=== PATIENT | male | born 1995 | race Caucasian/White ===

== ENCOUNTER 2020-11-11 07:30 | Outpatient (REF) | payer MEDICAID, OTHER, SELFPAY ==
[2020-11-11 08:16] LABS: MANUAL DIFF FLAG NO
[2020-11-11 08:20] LABS: Basophils Percent Auto 0.2 % (0-2); Eosinophils Absolute Auto 0.2 X10*3/uL (0.0-0.4); Eosinophils Percent Auto 4.1 % (0-4); Hematocrit 49.9 % (42-52); Imm Gran Abs Auto 0.02 X10*3/uL (0.00-0.03); Imm Gran Pct Auto 0.4 % (0.0-0.4); Lymphocytes Absolute Auto 2.8 X10*3/uL (1.2-4.9); Lymphocytes Percent Auto 51.8 % (20-40); Mean Corpuscular HGB Conc 34.1 g/dl (31.0-36.0); Mean Corpuscular Hemoglobin 28.4 pg (27.0-33.0); Mean Corpuscular Volume 83.3 fL (80-98); Mean Platelet Volume 10.7 fL (9.4-12.4); Monocytes Absolute Auto 0.4 X10*3/uL (0.1-1.2); Monocytes Percent Auto 7.2 % (2-11); Neutrophils Percent Auto 36.3 % (45-73); Platelet Count 245 X10*3/uL (160-400); Red Blood Count 5.99 X10*6/uL (4.60-5.80); Red Cell Distribution Width 11.5 % (11.0-16.0); White Blood Count 5.4 X10*3/uL (4.8-10.8)
[2020-11-11 08:46] LABS: Alanine Aminotransferase 41 U/L (0-40); Albumin Level 4.5 g/dL (3.5-5.0); Alkaline Phosphatase 67 U/L (39-117); Anion Gap 14 (12-20); Aspartate Amino Transferase 29 U/L (5-37); Bilirubin Direct 0.4 mg/dL (0.0-0.5); Blood Urea Nitrogen 15 mg/dL (9-16); Carbon Dioxide 24 mmol/L (22-29); Chloride 103 mmol/L (96-108); Cholesterol 222 mg/dL; Estimated Glomerular Filt Rate > 60; Glucose Random 99 mg/dL (60-115); HDL Cholesterol 35 mg/dL; LDL Cholesterol Calculated 156 mg/dl; Potassium 4.2 mmol/L (3.3-5.1); Sodium 137 mmol/L (135-145); Total Protein 7.8 g/dL (6.5-8.0); Triglycerides 156 mg/dL
[2020-11-11 08:49] LABS: Estimated Average Glucose 88 mg/dL; Hemoglobin A1c % 4.7 %
[2020-11-11 09:08] LABS: Free T4 (Free Thyroxine) 1.03 ng/dL (0.71-1.85); Thyroid Stimulating Hormone 1.43 uIU/mL (0.32-4.0)
[2020-11-11 10:54] LABS: CT PCR NOT DETECTED (Not Detect.); NG PCR NOT DETECTED (Not Detect.)
[2020-11-11 11:55] LABS: HIV AB/AG Nonreactive (Nonreactive); HIV Num 1 0.11 S/CO (0.00-0.99)
[2020-11-11 11:56] LABS: ~HepC Num1 0.05 S/CO (0.00-0.79); ~Hepatitis C Antibody Nonreactive (Nonreactive)
[2020-11-12 07:43] LABS: Syphilis Screen Nonreactive (Nonreactive)
== END 2020-11-11 07:31 | disposition home or self-care (01) ==
LOC: HO.LAB 07:30
PROVIDERS: PCP Internal Medicine; Visit Provider Internal Medicine
DX: Z00.00 Encounter for general adult medical examination without abnormal findings (principal); Z11.3 Encounter for screening for infections with a predominantly sexual mode of transmission; Z11.4 Encounter for screening for human immunodeficiency virus [HIV]; Z11.59 Encounter for screening for other viral diseases; K21.9 Gastro-esophageal reflux disease without esophagitis
CPT/HCPCS: 80048; 80061; 80076; 83036; 84439; 84443; 85025; 86780; 86803; 87389; 87491; 87591

== ENCOUNTER 2020-11-16 11:29 | Outpatient (REF) | payer MEDICAID, OTHER, SELFPAY | END 2020-11-16 11:30 | disposition home or self-care (01) | LOC: HO.LNP 11:29 | PROVIDERS: Visit Provider Internal Medicine | DX: K21.9 Gastro-esophageal reflux disease without esophagitis (principal) | CPT/HCPCS: 87338 ==

== ENCOUNTER → 2020-11-26 07:53 | Outpatient (REF) | payer MEDICAID, OTHER, SELFPAY ==
--- NOTE | 2020-11-26 08:08 | ECG_ITS ---
Test Reason : PALPITATIIONS Blood Pressure : / mmHG Vent. Rate : 072 BPM Atrial Rate : 072 BPM P-R Int : 130 ms QRS Dur : 090 ms QT Int : 372 ms P-R-T Axes : 024 017 -08 degrees QTc Int : 407 ms Normal sinus rhythm Normal ECG No previous ECGs available Referred By: Angelika Bauman Electronically Signed By:ANITA ELI MD
== END ==
LOC: HO.CARD 07:53
PROVIDERS: Absent Provider Internal Medicine; PCP Internal Medicine; Visit Provider Registered Nurse
DX: R00.2 Palpitations (principal)
CPT/HCPCS: 93005

== ENCOUNTER 2020-12-10 09:34 | Outpatient (REF) | payer MEDICAID, OTHER, SELFPAY ==
--- NOTE | ~2020-12-10 | US_ITS ---
EXAMINATION: US ABDOMEN COMPLETE CLINICAL INFORMATION: Abdominal pain. COMPARISON: CT abdomen and pelvis 01/21/2019. TECHNIQUE: Real-time imaging of the abdominal viscera. FINDINGS: PANCREAS: Not well visualized due to bowel gas. ABDOMINAL AORTA: The proximal, mid, and distal segments are normal in caliber. INFERIOR VENA CAVA: Visualized portions are normal. LIVER: Liver echotexture is slightly increased. The liver is normal in size. The liver contour is normal. No focal hepatic lesion. There is no intrahepatic biliary duct dilatation seen. GALLBLADDER: Normal. The gallbladder is physiologically distended without evidence of stones, sludge, polyps, wall thickening or pericholecystic fluid. COMMON BILE DUCT: Normal in caliber measuring 0.3 cm in diameter. RIGHT KIDNEY: Normal. No hydronephrosis. No renal calculi or focal parenchymal lesions. The kidney measures 10.6 cm in maximum dimension. LEFT KIDNEY: Normal. No hydronephrosis. No renal calculi or focal parenchymal lesions. The kidney measures 11.2 cm in maximum dimension. SPLEEN: Normal. The spleen measures 10.1 cm in maximum dimension. FREE FLUID: None. US/US abdomen complete IMPRESSION: Slightly echogenic liver probably representing fatty infiltration. Limited visualization of the pancreas. Otherwise unremarkable exam.
== END 2020-12-10 09:35 | disposition home or self-care (01) ==
LOC: HO.HMGCX 09:34
PROVIDERS: PCP Internal Medicine; Visit Provider Registered Nurse
DX: R10.0 Acute abdomen (principal)
CPT/HCPCS: 76700

== ENCOUNTER 2022-02-28 12:59 | Outpatient (REF) | payer MEDICAID, OTHER, SELFPAY ==
--- NOTE | ~2022-02-28 | US_ITS ---
EXAMINATION: US SCROTUM CLINICAL INFORMATION: Bilateral testicular pain. COMPARISON: None TECHNIQUE: A sonogram of the scrotum was performed assessing jarquin-scale appearance and color Doppler flow. Spectral Doppler analysis of the arterial and venous flow were performed in the testes bilaterally. FINDINGS: RIGHT: Right testicle measures 4.7 x 2.2 x 3.1 cm, volume 16.0 mL. No focal testicular parenchymal lesions are visualized. Spectral Doppler analysis of the arterial and venous flow is normal in the right testis. Right epididymal head is normal in size. No right hydrocele or varicocele is seen. Right epididymal Doppler flow is normal. LEFT: Left testicle measures 4.6 x 2.0 x 3.1 cm, volume 14.5 mL. No focal testicular parenchymal lesions are visualized. Spectral Doppler analysis of the arterial and venous flow is normal in the left testis. Left epididymal head is normal in size. 3 mm epididymal head cyst. No left hydrocele or varicocele is seen. Left epididymal Doppler flow is normal. US/US scrotum IMPRESSION: Unremarkable scrotal ultrasound.
== END 2022-02-28 13:00 | disposition home or self-care (01) ==
LOC: HO.US 12:59
PROVIDERS: Visit Provider Internal Medicine
DX: N50.811 Right testicular pain (principal); N50.812 Left testicular pain
CPT/HCPCS: 76870

== ENCOUNTER 2024-07-02 10:03 | Outpatient (REF) | payer MEDICAID, OTHER, SELFPAY ==
--- OUTSIDE RECORDS SUMMARY | 2024-07-02 12:06 | XMS_ITS | Encounter Summary ---
Author Organization [employer] [facility] Address [address] [place] [address] [address] [place] [address] Care Team Providers Care Satellite Communications Operator Name Role Phone Iain Driver MD Primary Care Prov ider Encounter Details Date Type Department Care Team (Latest Contact Info) Description 06/03/2019 Abstract [facility] CONVERSIONS Dental, Provider, DDS Social History Tobacco Use Types Packs/Day Years Used Date Smoking Tobacco: Never Assessed Sex and Gender Information Value Date Recorded Sex Assigned at Male 03/06/2022 10:36 AM EDT Legal Sex Male 10:36 AM EDT Gender Identity Choose not to disclose 10:36 AM EDT Sexual Orientation Choose not to disclose 2021 10:36 AM EDT documented as of this encounter Plan of Treatment Not on file documented as of this encounter Visit Diagnoses Not on filedocumented in this encounter Care Teams Satellite Communications Operator Relationship Specialty Start Date End Date Iain Driver MD [address] [place] [address] PCP - General Internal Medicine 02/07/19 documented as of this encounter
--- OUTSIDE RECORDS SUMMARY | 2024-07-02 12:06 | XMS_ITS | Encounter Summary ---
Author Organization [employer] Address [address] [facility] 7 [place] [address] Care Team Providers Care Paper Tester Name Role Phone Iain Driver MD Primary Care Prov ider Encounter Details Date Type Department Care Team ([facility] Contact Info) Description 06/30/2024 3:[address] [facility] P[facility]S [address] [place] [address] Iain Driver MD [address] [place] [address] Primary hypertension (Primary Dx); STD exposure Social History Tobacco Use Types Packs/Day Years Used Date Smoking Tobacco: Never Smokeless Tobacco: Never Alcohol Use Standard Drinks/Week Comments Yes 0 (1 standard drink = 0.6 oz pur e alcohol) Depression Answer Date Recorded Patient Health Questionnaire-9 Score 0 06/30/2024 Patient Health Questionnaire-9 Score 0 06/30/2024 Last PHQ-9: Questionnaire Data Not on file 0 06/30/2024 Housing Stability Answer Date Recorded What is your housing situation today? I have mireya sing 06/30/[address] you li ve. Do you have problems with any of the following? None of the above 06/30/2024 Food Insecurity Answer Date Recorded Within the past 12 months, y ou worried that your food would run out before you got money to buy more: Never True 06/30/2024 Within the past 12 months,th e food you bought just didn't last and you didn't have enough money to get more: Never True Transportation Answer Date Recorded In the past 12 months, has l ack of transportation kept you from medical appts, meetings, work or from getting things needed for daily living? No 06/30/2024 Utilities Answer Date Recorded In the past 12 months, has t he electric, gas, oil or water company threatened to shut off services in your home? No 06/30/2024 Depression Answer Date Recorded Patient Health Questionnaire-2 Score 0 06/30/2024 Internet Access Answer Date Recorded Internet Access Q1 Yes 06/30/2024 Internet Access Q2 Not on file 06/30/2024 Sex and Gender Information Value Date Recorded Sex Assigned at Male 03/06/2022 10:36 AM EDT Legal Sex Male 10:36 AM EDT Gender Identity Choose not to disclose 10:36 AM EDT Sexual Orientation Choose not to disclose 2021 10:36 AM EDT documented as of this encounter Last Filed Vital Signs Vital Sign Reading Time Taken Comments Blood Pressure 123/72 06/30/2024 3:25 PM EST Pulse - - Temperature - - Respiratory Rate - - Oxygen Saturation - - Inhaled Oxygen Concentration - - Weight - - Height - - Body Mass Index - - documented in this encounter Progress Notes * Iain Quinteros MD - 06/30/2024 3:15 PM EST Subjective Patient ID: Indu Hdz is a 29 y.o. adult who presents for No chief complaint on file.. Hypertension This is a chronic problem. Pertinent negatives include no chest pain, headaches, malaise/fatigue, palpitations or shortness of breath. Review of Systems Constitutional: Negative for malaise/fatigue. Respiratory: Negative for shortness of breath. Cardiovascular: Negative for chest pain and palpitations. Neurological: Negative for headaches. Objective Physical Exam Neurological: General: No focal deficit present. Mental Status: Indu is oriented to person, place, and time. Psychiatric: Mood and Affect: Mood normal. Behavior: Behavior normal. Assessment/Plan Problem List Items Addressed This Visit Primary hypertension - Primary Patient has lost over 30 lbs, has been exercising, following diet reccomendations, is off htn treatment for over 3 months and his blood pressure has remained stable, will order labs for further evaluation Relevant Orders CBC auto differential Comprehensive Metabolic Panel Lipid Panel, Standard Urinalysis, Complete, with Reflex to Culture Hemoglobin A1c Other Visit Diagnoses STD exposure Relevant Orders HIV-1/2 Antigen and Antibodies, Fourth Generation, with Reflexes Hepatitis C Antibody with Reflex to HCV, RNA, Quantitative, Real-Time PCR Chlamydia/N. Gonorrhoeae RNA, TMA, Urogenitial Syphilis Screen documented in this encounter Miscellaneous Notes * Assessment & Plan Note - Iain Quinteros MD - 06/30/2024 3:34 PM ESTAssociated Problem(s): Primary hypertension Patient has lost over 30 lbs, has been exercising, following diet reccomendations, is off htn treatment for over 3 months and his blood pressure has remained stable, will order labs for further evaluation documented in this encounter Plan of Treatment Scheduled Orders Name Type Priority Associated Diagnoses Orde r Schedule CBC auto differential Lab Routine Primary hypertension Expected: 06/30/2024 (Approximate), Expires: 06/30/2025 Comprehensive Metabolic Panel Lab Routine Primary hypertension Expected: 06/30/2024 (Approximate), Expires: 06/30/2025 Lipid Panel, Standard Lab Routine Primary hypertension Expected: 06/30/2024 (Approximate), Expires: 06/30/2025 Urinalysis, Complete, with Reflex to Culture Lab Routine Primary hypertension Expected: 06/30/2024 (Approximate), Expires: 06/30/2025 Hemoglobin A1c Lab Routine Primary hypertension Expected: 06/30/2024 (Approximate), Expires: 06/30/2025 HIV-1/2 Antigen and Antibodies, Fourth Generation, with Reflexes Lab Routine STD exposure Expected: 06/30/2024 (Approximate), Expires: 06/30/2025 Hepatitis C Antibody with Reflex to HCV, RNA, Quantitative, Real-Time PCR Lab Routine STD exposure Expected: 06/30/2024, Expires: 06/30/2025 Chlamydia/N. Gonorrhoeae RNA, TMA, Urogenitial Microbiology Routine STD exposure Ordered: 06/30/2024 Syphilis Screen Lab Routine STD exposure Expected: 06/30/2024, Expires: 06/30/2025 documented as of this encounter Visit Diagnoses Diagnosis Primary hypertension- Primary Unspecified essential hypertension STD exposure documented in this encounter Additional Health Concerns Assessment Noted Time PHQ-9 Depression Total Score: 0 06/30/19 25 3:13 PM EST documented as of this encounter Care Teams Paper Tester Relationship Specialty Start Date End Date Iain Driver MD [address] [place] [id number] PCP - General Internal Medicine 02/07/19 documented as of this encounter
--- OUTSIDE RECORDS SUMMARY | 2024-07-02 12:06 | XMS_ITS | Clinical Summary ---
Author Organization [employer] Address [address] [facility] [address] [place] [address] Care Team Providers Care Cloth Colorer Name Role Phone Iain Driver MD Primary Care Prov ider Allergies No known active allergies Medications Blood Pressure kitIndications:Pr imary hypertension 1 Units 2 times daily. 1 kit 3 Active psyllium (Metamucil) 58.6 % packet Take 1 packet (3.4 g of fiber) by mouth 2 times daily. Mix and drink with at least 8 ounces of water or juice. 60 packet 11 5 06/30/19 26 Active hydrOXYzine HCl (Atarax) 25 MG tablet Take 1 tablet (25 mg) by mouth if needed in the morning, at noon, and at bedtime for itching. 90 tablet 3 3 06/30/19 25 Discontinu ed(Therapy completed) hydrOXYzine HCl (Atarax) 25 MG tablet Take 1 tablet (25 mg) by mouth if needed in the morning, at noon, and at bedtime for itching. 90 tablet 3 3 06/30/19 25 Discontinu ed(Therapy completed) losartan (Cozaar) 25 MG tabletIndications :Primary hypertension TAKE ONE TABLET EVERY DAY 90 tablet 1 4 06/30/19 25 Discontinu ed(Therapy completed) Active Problems Problem Noted Date Diagnosed Date Periumbilical abdominal pain 10/19/2022 Assessment & Plan (10/19/2022 10:11 AM EDT): Examination was unremarkable, no masses, no hernia were palpated, he is going to the gym, most likely muscle strain, will monitor Anxiety 10/19/2022 Assessment & Plan (10/19/2022 10:12 AM EDT): Will prescribe hydroxyzine, no suicidal/homicidal ideas Atypical chest pain 10/05/2022 Assessment & Plan (10/05/2022 11:40 AM EDT): Patient complains of substernal chest pain, denied shortness of breath, refers last a few minutes and goes away, no radiation, will order stress test r/o cardiac etiology Primary hypertension 06/13/2022 Assessment & Plan (06/30/2024 3:34 PM EST): Patient has lost over 30 lbs, has been exercising, following diet reccomendations, is off htn treatment for over 3 months and his blood pressure has remained stable, will order labs for further evaluation Assessment & Plan (10/19/2022 10:08 AM EDT): Controlled, reinforced low sodium diet and exercise as tolerated, no changes will be made Assessment & Plan (10/05/2022 11:40 AM EDT): Controlled, reinforced low sodium diet and exercise as tolerated, continue same treatment, monitor bp daily Assessment & Plan (06/13/2022 12:55 PM EST): Will start on losartan 25mg, reinforced low sodium diet and exercise as tolerated, will follow up in 1 month HPV exposure 05/10/2022 Assessment & Plan (06/05/2022 8:44 PM EST): Patient exposed to HPV though his , he is concerned of condition, no lesion, no genital rash/discharge/pain, will provide gardasil Encounters Date Type Department Care Team Description 06/30/2024 3:15 PM EST Telemedicine [facility] MED & PEDS [address] [place] [address] Iain Driver MD Primary hypertension (Primary Dx); STD exposure 06/30/2024 Travel from Last 3 Months Immunizations Name Administration Dates Next Due HPV 9-Valent 07/11/2022,06/06/2022 Influenza injectable quadriv alent IIV4 with preservative 02/17/2019 Social History Tobacco Use Types Packs/Day Years Used Date Smoking Tobacco: Never Smokeless Tobacco: Never Tobacco Cessation:Counseling Given: Not Answered Alcohol Use Standard Drinks/Week Comments Yes 0 (1 standard drink = 0.6 oz pur e alcohol) Depression Answer Date Recorded Patient Health Questionnaire-9 Score 0 06/30/2024 Patient Health Questionnaire-9 Score 0 06/30/2024 Last PHQ-9: Questionnaire Data Not on file 0 06/30/2024 Housing Stability Answer Date Recorded What is your housing situation today? I have mireya mckeon 06/30/[address] you li [...] not to disclose 2021 10:36 AM EDT Last Filed Vital Signs Vital Sign Reading Time Taken Comments Blood Pressure 123/72 06/30/2024 3:25 PM EST Pulse 70 10/19/2022 9:46 AM EDT Temperature 36.7 ??C (98.1 ??F) 10/19/2022 9:46 AM ED T Respiratory Rate 16 10/19/2022 9:46 AM EDT Oxygen Saturation 98% 10/19/2022 9:46 AM EDT Inhaled Oxygen Concentration - - Weight 100 kg (221 lb) 10/19/2022 9:46 AM EDT Height 176.5 cm (5' 9.5 ) 10/19/2022 9:46 AM EDT Body Mass Index 32.17 10/19/2022 9:46 AM EDT Plan of Treatment Health Maintenance Due Date Last Done Comments Family Planning (PISQ) 2008 DTaP/Tdap/Td Vaccines (1 - Tdap) 2012 Hepatitis B Vaccines (1 of 3 - 19+ 3-dose series) 2012 HPV Vaccines (3 - 3-dose SCD M series) 12/04/2022 07/11/2022, 06/06/2022 Tobacco Screening 10/20/2023 10/19/2022 COVID-19 Vaccine (3 - 2023-2 5 season) 2024 10/06/2020, 09/08/2020 Influenza Vaccine (#1) 2024 02/17/2019 Alcohol/Substance Use Screening 06/30/2025 06/30/2024 Depression Screening 06/30/2025 06/30/2024, 06/30/2024 SDOH Screening 06/30/2025 06/30/2024 Lipid Panel 11/10/2026 11/10/2021 Zoster Vaccines (1 of 2) 2043 RSV Patients and Patients Aged 60 years or older (1 - 1-dose 75+ series) 2068 HIV Screening Completed 11/11/2020 Hepatitis C Screening Completed 11/11/2020 HIB Vaccines Aged Out No longer eligi ble based on patient's age to complete this topic Hepatitis A Vaccines Aged Out No long er eligible based on patient's age to complete this topic IPV Vaccines Aged Out No longer eligi ble based on patient's age to complete this topic Meningococcal Vaccine Aged Out No lilly jeffry eligible based on patient's age to complete this topic Pneumococcal Vaccine: Pediatrics (0 to 5 Years) and At-Risk Patients (6 to 49) Years) Aged Out No longer eligible b ased on patient's age to complete this topic RSV under 20 months Aged Out No longe r eligible based on patient's age to complete this topic Rotavirus Vaccines Aged Out No longer eligible based on patient's age to complete this topic Procedures Procedure Name Priority Date/Time Associated Diagnosis Comments LIPID PANEL, STANDARD Routine 11/10/2021 10:21 AM EDT ZZZ HISTORICAL HEPATITIS C ANTIBODY RFLX Routine 11/11/2020 8:10 AM EDT ZZZ HISTORICAL HIV AB/AG Routine 11/11/2020 8:10 AM EDT from Last 3 Months or Most Recently Relevant to Health Maintenance Results * (ABNORMAL) LIPID PANEL, STANDARD (11/10/2021 10:21 AM EDT) Chol/HDLC Ratio 3.6 <5.0 (calc) [facility] Cholesterol, Total 171 <200 mg/dL [facility] HDL Cholesterol 47 > OR = 40 mg/dL [facility] LDL Cholesterol 100(H) mg/dL (calc) [facility] Comment: Reference range: <100 ?? Desirable range <100 mg/dL for primary prevention; ?? <70 mg/dL for patients with CHD or diabetic patients ?? with > or = 2 CHD risk factors. ?? LDL-C is now calculated using the Agustin ?? calculation, which is a validated novel method providing ?? better accuracy than the Friedewald equation in the ?? estimation of LDL-C. ?? Armand MACK et al. EDMOND. 2013;310(19): 0910-8085 ?? (http://education.BeTheBeast.com/faq/EGI349) Non-HDL Cholesterol 124 <130 mg/dL (calc) [facility] Comment: For patients with diabetes plus 1 major ASCVD risk ?? factor, treating to a non-HDL-C goal of <100 mg/dL ?? (LDL-C of <70 mg/dL) is considered a therapeutic ?? option. Triglycerides 140 <150 mg/dL [facility] 11/10/2021 10:2 1 AM EDT Iain Quinteros MD LAB BLOOD ORDERABL ES Final Result Performing Organization Address [facility] de Phone Number [facility] [address] * HEPATITIS C ANTIBODY RFLX (11/11/2020 8:10 AM EDT) Pathologist [facility] Hepatitis C Antibody Nonreactive Nonreactive [facility] Comment: Antibodies to HCV not detected; does not exclude early acute HCV infection. 11/11/2020 8:10 AM EDT Iain Quinteros MD HISTORICAL/NON ORD ERABLE LABS Final Result Performing Organization Address [facility] Phone [facility] [address] * HIV AB/AG (11/11/2020 8:10 AM EDT) Pathologist [facility] HIV AB/AG Nonreactive Nonreactive [facility] Comment: HIV-1 p24 Ag and/or HIV-1/HIV-2 Ab not detected. ?? A test result that is nonreactive does not exclude the possibility of exposure to or infection with HIV-1 and/or HIV-2. Nonreactive results in this assay for individuals with prior exposure to HIV-1 and/or HIV-2 may be due to antigen and antibody levels that are below the limit of detection of this assay. ?? The [employer] Super[employer] HIV Ag/Ab Combo assay result and supplemental assay results should be interpreted in conjunction with the patient's clinical presentation, history and other laboratory results. ??If the results are inconsistent with clinical evidence, additional testing is suggested to confirm the result. 11/11/2020 8:10 AM EDT Iain Quinteros MD HISTORICAL/NON ORD ERABLE LABS Final Result Performing Organization Address [facility] de Phone Number [facility] [address] from Last 3 Months or Most Recently Relevant to Health Maintenance Insurance [facility] PPO Care Teams Cloth Colorer Relationship Specialty Start Date End Date Iain Driver MD [address] [place] [id number] PCP - General Internal Medicine 02/07/19
--- OUTSIDE RECORDS SUMMARY | 2024-07-02 12:06 | XMS_ITS | Referral Summary ---
Author Organization [facility] Address [address] [place] [address] Care Team Providers Care Wound Care Center Consultant Name Role Phone Iain Driver MD Primary Care Prov ider Allergies No known active allergies Medications omeprazole (PriLOSEC) 20 mg capsule Take 20 mg by mouth once a day. 1 Active Pain Reliever Plus 250-250-65 mg per tablet Take 1-2 tablets by mouth every 6 hours as needed. 1 Active hydrOXYzine HCL (ATARAX) 25 mg tablet Take 25 mg by mouth 3 times a day as needed. 1 Active ibuprofen (MOTRIN) 400 mg tablet Take 400 mg by mouth every 4 hours as needed. 1 Active chlorhexidine (PERIDEX) 0.12% solution Rinse mouth with 15 mL 2 times a day. Do not swallow. Active fluticasone propionate (FLONASE) 50 mcg/actuation nasal spray Administer 1 spray into each nostril once a day. Active Active Problems Problem Noted Date Diagnosed Date Palpitations 05/13/2021 Assessment & Plan (05/13/2021 4:50 AM EST): The patient's palpitations are most likely benign in etiology given the short, self limited and ramping up/ramping down nature of the symptoms. Additionally, given that he reports an association with racing thoughts, it is likely the palpitations are secondary to anxiety. Additional contributing factors may include untreated ELEANOR, alcohol use on the weekends and caffeine. We discussed decreasing his alcohol and caffeine intake. Additionally, we will check serum electrolytes, thyroid function, TTE and arrange for a 14d event monitor. - BMP, Mg, TSH - TTE - 14d event monitor - Lipids and A1c for risk stratification ELEANOR (obstructive sleep apnea) 05/13/2021 Social History Tobacco Use Types Packs/Day Years Used Date Smoking Tobacco: Never Smokeless Tobacco: Never Alcohol Use Standard Drinks/Week Comments Yes 10 (1 standard drink = 0.6 oz pu re alcohol) Sex and Gender Information Value Date Recorded Sex Assigned at Not on file Legal Sex Male 4:30 PM EST Gender Identity Not on file Sexual Orientation Not on file Last Filed Vital Signs Vital Sign Reading Time Taken Comments Blood Pressure 129/87 05/12/2021 3:44 PM EST Pulse 76 05/12/2021 3:37 PM EST Temperature - - Respiratory Rate 16 05/12/2021 3:37 PM EST Oxygen Saturation 98% 05/12/2021 3:37 PM EST Inhaled Oxygen Concentration - - Weight 104.8 kg (231 lb) 05/12/2021 3:37 PM EST Height 175.3 cm (5' 9 ) 05/12/2021 3:37 PM EST Body Mass Index 34.11 05/12/2021 3:37 PM EST Plan of Treatment [place] [id number] Care Teams Wound Care Center Consultant Relationship Specialty Start Date End Date Iain Driver MD [address] [place] [address] PCP - General 04/20/21
--- OUTSIDE RECORDS SUMMARY | 2024-07-02 12:06 | XMS_ITS | Encounter Summary ---
Author Organization [employer] Address [address] [facility] [address]t [place] [address] Care Team Providers Care Clinic Business Manager Name Role Phone Iain Driver MD Primary Care Prov ider Encounter Details Date Type Department Care Team (Latest Contact Info) Description 06/30/2024 Travel Social History Tobacco Use Types Packs/Day Years [...] is your housing situation today? I have mireyasonia mckeon 06/30/[address] you [...] Diagnoses Not on filedocumented in this encounter Additional Health Concerns Assessment Noted Time PHQ-9 Depression Total Score: 0 06/30/19 25 3:13 PM EST documented as of this encounter Care Teams Clinic Business Manager Relationship Specialty Start Date End Date Iain Driver MD [address] [place] [id number] PCP - General Internal Medicine 02/07/19 documented as of this encounter
--- OUTSIDE RECORDS SUMMARY | 2024-07-02 12:06 | XMS_ITS | Clinical Summary ---
Author Organization [facility] Address [address] [place] [address] Care Team Providers Care Household Appliances Service Technician Name Role Phone Iain Driver MD Primary [...] risk stratification ELEANOR (obstructive sleep apnea) 05/13/2021 Family History Medical History Relation Name Comments Diabetes Father Hypertension Father Cardiomyopathy Maternal Grandfather enla rged heart Other Mother Palpitations Relation Name Status Comments Father Maternal Grandfather Mother Social History Tobacco Use Types Packs/Day Years [...] 05/12/2021 3:37 PM EST Plan of Treatment Health Maintenance Due Date Last Done Comments HIV Screening 1993 Varicella Vaccines (1 of 2 - 13+ 2-dose series) 2006 Hepatitis B Vaccines (1 of 3 - 19+ 3-dose series) 2012 DTaP,Tdap,and Td Vaccines (1 - Tdap) 2015 COVID-19 Vaccine ( - 2023-2 5 season) 2024 Influenza Vaccine (#1) 2024 Alcohol/Substance Use Screening 05/07/2024 RSV Vaccine (60+ years old a nd patients) (1 - 1-dose 75+ series) 2068 Pneumococcal Vaccine: Pediat belkis (0-5 Years) and At-Risk Patients (6-50 Years) Aged Out No longer eligible b ased on patient's age to complete this topic Insurance [facility] LUC [id number] Care Teams Household Appliances Service Technician Relationship Specialty Start Date End Date LeyIain Goyal MD [address] [place] [id number] PCP - General 04/20/21
[2024-07-02 14:25] LABS: MANUAL DIFF FLAG NO
[2024-07-02 14:27] LABS: Appearance Urine Clear; Color Urine Yellow; Glucose Urine UA Negative (Negative); Leukocyte Esterase Urine Negative (Negative); Nitrite Urine Negative (Negative); Urine Blood Negative (Negative); Urine Ketones Trace mg/dL (Negative); Urine Protein Negative (Neg-Trace)
[2024-07-02 14:30] LABS: Bacteria Urine None Seen (None Seen); Hyaline Casts Urine 0-2 /LPF (0-2); RBC Urine 0-2 /HPF (0-2); Squamous Epithelial Cell Urine 0-2 /HPF (0-2); WBC Urine 0-5 /HPF (0-5)
[2024-07-02 14:30] LABS: Basophils Percent Auto 0.3 % (0-2); Eosinophils Absolute Auto 0.1 X10*3/uL (0.0-0.4); Eosinophils Percent Auto 2.7 % (0-4); Hematocrit 48.9 % (42.0-52.0); Hemoglobin 16.1 g/dl (14.0-18.0); Imm Gran Abs Auto 0.01 X10*3/uL (0.00-0.03); Imm Gran Pct Auto 0.3 % (0.0-0.4); Lymphocytes Absolute Auto 2.1 X10*3/uL (1.2-4.9); Lymphocytes Percent Auto 56.1 % (20-40); Mean Corpuscular HGB Conc 32.9 g/dl (31.0-36.0); Mean Corpuscular Hemoglobin 28.4 pg (27.0-33.0); Mean Corpuscular Volume 86.2 fL (80.0-98.0); Mean Platelet Volume 11.9 fL (9.4-12.4); Monocytes Absolute Auto 0.3 X10*3/uL (0.1-1.2); Monocytes Percent Auto 8.4 % (2-11); Neutrophils Absolute Auto 1.2 x10*3/uL (2.0-8.3); Neutrophils Percent Auto 32.2 % (45-73); Platelet Count 226 X10*3/uL (160-400); Red Blood Count 5.67 X10*6/uL (4.60-5.80); Red Cell Distribution Width 12.2 % (11.0-16.0); White Blood Count 3.7 X10*3/uL (4.8-10.8)
[2024-07-02 14:41] LABS: Estimated Average Glucose 77 mg/dL; Hemoglobin A1c % 4.3 % (<6.0)
[2024-07-02 14:54] LABS: Albumin Level 4.3 g/dL (3.5-5.0); Alkaline Phosphatase 62 U/L (39-117); Anion Gap 13 (12-20); Aspartate Amino Transferase 45 U/L (5-37); Bilirubin Total 1.2 mg/dL (0.0-1.0); Blood Urea Nitrogen 18 mg/dL (9-16); Calcium 9.6 mg/dL (8.4-10.2); Carbon Dioxide 25 mmol/L (22-29); Chloride 106 mmol/L (96-108); Cholesterol 172 mg/dL (<200); Estimated Glomerular Filt Rate > 60; Glucose Random 73 mg/dL (60-115); HDL Cholesterol 47 mg/dL (>40); LDL Cholesterol Calculated 114 mg/dL (<100); Potassium 3.8 mmol/L (3.3-5.1); Sodium 140 mmol/L (135-145); Total Protein 7.5 g/dL (6.5-8.0); Triglycerides 57 mg/dL (<150)
[2024-07-02 15:05] LABS: Alanine Aminotransferase 44 U/L (0-40)
[2024-07-03 08:22] LABS: Syphilis Screen Nonreactive (Nonreactive)
[2024-07-03 08:35] LABS: HIV AB/AG Nonreactive (Nonreactive); HIV Num 1 0.06 S/CO (0.00-0.99); ~HepC Num1 0.13 S/CO (0.00-0.79); ~Hepatitis C Antibody Nonreactive (Nonreactive)
== END 2024-07-02 10:04 | disposition home or self-care (01) ==
LOC: HO.CHCLDS 10:03
PROVIDERS: Visit Provider Internal Medicine
DX: I10 Essential (primary) hypertension (principal); Z20.2 Contact with and (suspected) exposure to infections with a predominantly sexual mode of transmission
CPT/HCPCS: 36415; 80053; 80061; 81001; 83036; 85025; 86780; 86803; 87389